=== PATIENT | male | born 1990 | race Caucasian/White ===

== ENCOUNTER 2019-10-17 07:46 | Emergency (ER) | payer OTHER ==
--- NOTE | 2019-10-17 08:20 | ED ---
Upper Extremity Pain - HPI Summary HPI Summary: Patient is a 29-year-old male who presents emergency department for a right shoulder injury that occurred yesterday while skiing. Patient states he fell and landed onto outstretched right arm. States he struck his head but denies loss of consciousness. Patient notes ongoing right shoulder pain. Pain worse with movement. Denies numbness, tingling or weakness. Symptoms are moderate in severity. - History of Current Complaint Chief Complaint: EDShoulderClavicleInj Stated Complaint: R SHOULDER INJURY PER PT Time Seen by Provider: 10/17/19 07:53 Hx Obtained From: Patient - Allergies/Home Medications Allergies/Adverse Reactions: Allergies Allergy/AdvReac Type Severity Reaction Status Date / Time No Known Allergies Allergy Verified 10/17/19 07:50 Home Medications: Home Medications Multivitamin [Multiple Vitamins] 1 tab PO DAILY 10/17/19 [History Confirmed ] PMH/Surg Hx/FS Hx/Imm Hx Previously Healthy: Yes Infectious Disease History: No Infectious Disease History: Denies: Traveled Outside the [place] in Last 30 Days - Family History Known Family History: Positive: Non-Contributory - Social History Occupation: Employed Full-time Lives: With Family Alcohol Use: Occasionally Substance Use Type: Reports: None Smoking Status (MU): Never Smoked Tobacco Review of Systems - ROS Summary Review of Systems Summary: Multivitamin [Multiple Vitamins] 1 tab PO DAILY 10/17/19 [History Confirmed ] Positive: Other - right shoulder pain. Skin: Negative Neurological/Mental Status: Negative Negative: Headache, Paresthesia, Numbness, Syncope All Other Systems Reviewed And Are Negative: Yes Physical Exam Triage Information Reviewed: Yes Vital Signs On Initial Exam: Initial Vitals Temp Pulse Resp BP Pulse Ox 98.0 F 64 19 123/79 100 10/17/19 07:47 10/17/19 07:47 10/17/19 07:47 10/17/19 07:47 10/17/19 07:47 Vital Signs Reviewed: Yes Appearance: Positive: Well-Appearing - Pt. sitting up in bed in NAD. Family member present. Skin: Positive: Warm, Dry Head/Face: Positive: Normal Head/Face Inspection Eyes: Positive: Normal, EOMI, KRISTIN Neck: Positive: Supple, Nontender Musculoskeletal: Positive: Normal, Strength/ROM Intact, Other - Pain over right AC shoulder. Good ROM of right shoulder with pain. Good radial pulse. No distal pain. Neurological: Positive: Normal, CN Intact II-III Psychiatric: Positive: Affect/Mood Appropriate Procedures - Sedation Patient Received Moderate/Deep Sedation with Procedure: No Diagnostics - Vital Signs Vital Signs Temp Pulse Resp BP Pulse Ox 10/17/19 07:47 98.0 F 64 19 123/79 100 - Laboratory Lab Statement: Any lab studies that have been ordered have been reviewed, and results considered in the medical decision making process. Course/Dx - Course Course Of Treatment: Patient presenting with isolated right shoulder injury. X- ray shows mild AC separation. Sling placed for comfort. Advised patient denies rest. Anti-inflammatories for pain as directed. Instructed gentle shoulder stretching and range of motion. Patient will follow-up with orthopedic clinic for further treatment. Patient understands and agrees with plan. - Diagnoses Differential Diagnosis/HQI/PQRI: Positive: Fracture (Closed), Strain, Sprain Provider Diagnoses: AC separation Discharge ED - Sign-Out/Discharge Documenting (check all that apply): Patient Departure - Discharge Plan Condition: Good Disposition: HOME Patient Education Materials: Acromioclavicular Separation (ED) Referrals: Bernabe Barth MD [Medical Doctor] - Additional Instructions: Schedule a follow up appointment with orthopedics Splint for comfort Ice intermittently Tylenol or Motrin for pain as directed Return to ER if symptoms change or worsen - Billing Disposition and Condition Condition: GOOD Disposition: Home
[2019-10-17 09:27] VITALS: BP 115/67
== END 2019-10-17 09:26 | disposition home or self-care (01) ==
LOC: ED 07:46
DX: S43.101A Unspecified dislocation of right acromioclavicular joint, initial encounter (principal); V00.321A Fall from snow-skis, initial encounter; Y93.23 Activity, snow (alpine) (downhill) skiing, snowboarding, sledding, tobogganing and snow tubing; Y92.9 Unspecified place or not applicable
CPT/HCPCS: 99282